=== PATIENT | male | born 1990 | race Caucasian/White ===

== ENCOUNTER 2021-01-30 21:57 | Emergency (ER) | payer MEDICAID ==
[~2021-01-30] VITALS: Ht 182.9 cm; Wt 123.0 kg
[2021-01-30 22:32] VITALS: BP 136/91
[2021-02-01] MEDS ORDERED: DOXY100C5 MT (07:15)
[2021-02-01] MEDS ORDERED: IBUP-2028 MT (07:15)
== END 2021-01-31 00:15 | disposition left against medical advice (07) ==
LOC: ER 21:57
DX: Z53.21 Procedure and treatment not carried out due to patient leaving prior to being seen by health care provider (principal)

== ENCOUNTER 2021-02-01 05:35 | Emergency (ER) | payer MEDICAID ==
[~2021-02-01] VITALS: Ht 182.9 cm; Wt 123.0 kg
[2021-02-01 06:38] LABS: CLARITY URINE CLEAR (CLEAR); COLOR URINE YELLOW (YELLOW); KETONES URINE TRACE (NEGATIVE); LEUKOCYTE ESTERASE URINE 2+ (NEGATIVE); NITRITE URINE NEGATIVE (NEGATIVE); OCCULT BLOOD URINE TRACE (NEGATIVE); PH URINE 5.5 (4.5-8.0); PROTEIN URINE TRACE (NEGATIVE); SPECIFIC GRAVITY URINE 1.029 (1.005-1.030)
[2021-02-01] MEDS ORDERED: AZITHROMYCIN 500 MG TABLET PO ONE (07:15)
[2021-02-01] MEDS ORDERED: CEFTRIAXONE SODIUM 500 MG/VIAL IM ONE (07:15)
[2021-02-01] MEDS ORDERED: DOXY100C5 MT (07:15)
[2021-02-01] MEDS ORDERED: KETOROLAC 30MG/ML VIAL IM ONE (07:15)
[2021-02-01] MEDS ORDERED: IBUP-2028 MT (07:15)
[2021-02-01 07:36] VITALS: BP 124/95
== END 2021-02-01 07:53 | disposition home or self-care (01) ==
LOC: ER 05:35
DX: N45.1 Epididymitis (principal); N34.2 Other urethritis; R03.0 Elevated blood-pressure reading, without diagnosis of hypertension; N43.3 Hydrocele, unspecified; I86.1 Scrotal varices
CPT/HCPCS: 76870; 81003; 87086; 93976; 96372; 99284; J0696; J1885